=== PATIENT | male | born 1995 | race Caucasian/White ===

== ENCOUNTER 2017-03-19 23:58 | Emergency (ER) | payer OTHER ==
[~2017-03-19] VITALS: Ht 188 cm; Wt 77.1 kg
[~2017-03-19 23:58] MED LIST: CYAN1TAB68 PO; DICL-195 PO; FOLI-68 PO; IBUP800T37 PO; LOR5/325 PO; NO RTN MEDS; RIVA15TA PO; VALA100059; WARF3TAB35 PO
--- NOTE | 2017-03-20 00:01 | ER Report ---
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 He has several mutations noted by hematology. There are extensive hematology notes to review. Patient was out celebrating [place] having several alcoholic drinks. During his 1st drink. He began to have some dull chest pain in his chest with some mild shortness of breath. No diaphoresis or nausea. The pain resolved spontaneously after 10 minutes. He had a 2nd drink and then shortly thereafter had a 2nd episode of chest pain. He notes no radiation to his back, neck or arms. He notes no associated symptoms. He states he's been compliant on his Xarelto. He was advised by his erosion control specialist to go to the ER for any chest pains. Patient denies leg swelling or leg pain. REVIEW OF SYSTEMS: Respiratory: No cough, no dyspnea. Cardiovascular: No chest pain, no palpitations. Gastrointestinal: No vomiting, no abdominal pain. Musculoskeletal: No back pain. Allergies: Coded Allergies: No Known Allergies (Verified Allergy, Mild, 03/20/17) Home Meds Active Scripts Rivaroxaban 15 Mg (XARELTO 15 MG) 15 Mg Tablet, 15 MG PO BID, #41 TAB Prov:TREVOR RAMOS 09/21/15 Reviewed Nurses Notes: Yes Old Medical Records Reviewed: Yes Hx Smoking: No Smoking Status: Never Smoker Exposure to Second Hand Smoke?: Yes Hx Substance Use Disorder: No Hx Alcohol Use: No Constitutional Vital Sign - Last 24 Hours 03/20/17 03/20/17 00:04 01:12 Temp 98.2 Pulse 73 68 Resp 16 12 B/P (MAP) 148/95 127/83 (98) Pulse Ox 93 96 O2 Delivery Room Air Physical Exam General Appearance: The patient is alert, has no immediate need for airway protection and no current signs of toxicity. No acute distress, vital signs stable, afebrile HEENT: Pupils equal and round no injection. Oropharynx without redness or exudate, mucous. Membranes are moist Respiratory: Chest is non tender, lungs are clear to auscultation. No chest wall tenderness Cardiac: regular rate and rhythm, no murmur Gastrointestinal: Abdomen is soft and non tender, no masses, bowel sounds normal. Musculoskeletal: Neck: Neck is supple and non tender. Extremities have full range of motion and are non tender. No edema, no calf tenderness Skin: No rashes or lesions. DIFFERENTIAL DIAGNOSIS: After history and physical exam differential diagnosis was considered for chest pain including but not limited to myocardial ischemia, pericarditis pulmonary embolus, chest wall pain, pleural inflammation, GERD and pulmonary infectious causes. Medical Decision Making Data Points Result Diagram: 03/20/17 0019 03/20/17 0019 Laboratory Hematology Test 03/20/17 00:19 Red Blood Count 5.50 M/uL (4.00-5.60) Mean Corpuscular Volume 84.6 fL (80.0-96.0) Mean Corpuscular Hemoglobin 29.7 pg (26.0-33.0) Mean Corpuscular Hemoglobin Concent 35.2 g/dL (32.0-36.0) Red Cell Distribution Width 13.2 % (11.5-14.5) Mean Platelet Volume 8.3 fL (7.2-11.1) Neutrophils (%) (Auto) 56.0 % (39.4-72.5) Lymphocytes (%) (Auto) 31.1 % (17.6-49.6) Monocytes (%) (Auto) 10.1 % (4.1-12.4) Eosinophils (%) (Auto) 1.9 % (0.4-6.7) Basophils (%) (Auto) 0.9 % (0.3-1.4) Nucleated RBC Relative Count (auto) 0.1 /100WBC Neutrophils # (Auto) 4.2 K/uL (2.0-7.4) Lymphocytes # (Auto) 2.3 K/uL (1.3-3.6) Monocytes # (Auto) 0.8 K/uL (0.3-1.0) Eosinophils # (Auto) 0.1 K/uL (0.0-0.5) Basophils # (Auto) 0.1 K/uL (0.0-0.1) Nucleated RBC Absolute Count (auto) 0.00 K/uL D-Dimer Quantitative (PE/DVT) < 0.27 ug/ml (0-0.50) Sodium Level 138 mmol/L (137-145) Potassium Level 3.5 mmol/L (3.5-5.0) Chloride Level 103 mmol/L (98-107) Carbon Dioxide Level 19 mmol/L (22-30) Blood Urea Nitrogen 14 mg/dl (9-21) Creatinine 0.90 mg/dl (0.66-1.25) Glomerular Filtration Rate Calc > 60.0 Random Glucose 84 mg/dl (75-110) Calcium Level 9.6 mg/dl (8.4-10.2) Total Bilirubin 0.9 mg/dl (0.2-1.3) Aspartate Amino Transf (AST/SGOT) 20 U/L (0-35) Alanine Aminotransferase (ALT/SGPT) 37 U/L (0-56) Alkaline Phosphatase 81 U/L (0-126) Troponin I < 0.012 ng/ml Total Protein 7.6 gm/dl (6.3-8.2) Albumin 4.6 g/dl (3.5-5.0) Chemistry Test 03/20/17 00:19 White Blood Count 7.5 k/uL (4.5-11.0) Red Blood Count 5.50 M/uL (4.00-5.60) Hemoglobin 16.4 g/dL (14.0-18.0) Hematocrit 46.5 % (42.0-52.0) Mean Corpuscular Volume 84.6 fL (80.0-96.0) Mean Corpuscular Hemoglobin 29.7 pg (26.0-33.0) Mean Corpuscular Hemoglobin Concent 35.2 g/dL (32.0-36.0) Red Cell Distribution Width 13.2 % (11.5-14.5) Platelet Count 161 K/uL (150-450) Mean Platelet Volume 8.3 fL (7.2-11.1) Neutrophils (%) (Auto) 56.0 % (39.4-72.5) Lymphocytes (%) (Auto) 31.1 % (17.6-49.6) Monocytes (%) (Auto) 10.1 % (4.1-12.4) Eosinophils (%) (Auto) 1.9 % (0.4-6.7) Basophils (%) (Auto) 0.9 % (0.3-1.4) Nucleated RBC Relative Count (auto) 0.1 /100WBC Neutrophils # (Auto) 4.2 K/uL (2.0-7.4) Lymphocytes # (Auto) 2.3 K/uL (1.3-3.6) Monocytes # (Auto) 0.8 K/uL (0.3-1.0) Eosinophils # (Auto) 0.1 K/uL (0.0-0.5) Basophils # (Auto) 0.1 K/uL (0.0-0.1) Nucleated RBC Absolute Count (auto) 0.00 K/uL D-Dimer Quantitative (PE/DVT) < 0.27 ug/ml (0-0.50) Glomerular Filtration Rate Calc > 60.0 Calcium Level 9.6 mg/dl (8.4-10.2) Total Bilirubin 0.9 mg/dl (0.2-1.3) Aspartate Amino Transf (AST/SGOT) 20 U/L (0-35) Alanine Aminotransferase (ALT/SGPT) 37 U/L (0-56) Alkaline Phosphatase 81 U/L (0-126) Troponin I < 0.012 ng/ml Total Protein 7.6 gm/dl (6.3-8.2) Albumin 4.6 g/dl (3.5-5.0) Coagulation Test 03/20/17 00:19 D-Dimer Quantitative (PE/DVT) < 0.27 ug/ml EKG/Imaging EKG Interpretation 12 lead EKG: Rhythm: normal sinus rhythm [place]: normal QRS: normal ST segments: Nonspecific diffuse ST and T-wave changes on comparison to previous EKG dated 09/29/14, no significant morphologic change ED Course/Re-evaluation ED Course Patient was minute to an examination room. H&P was done. The differential diagnoses was considered. On clinical examination. Patient is stable vital signs are normal pulse ox. He is some mild chest wall tenderness. His diagnostic laboratory studies are unremarkable for elevated d-dimer. His EKG is unremarkable. Patient's offered pain medication for pain relief. His pain is resolved spontaneously does not wish anything to take it home. He is unable take NSAIDs since he is on Xarelto. Patient advised to follow-up with primary care if chest pains persist beyond 3-5 days. Decision to Disposition Date: Mar 20, 2017 Decision to Disposition Time: 01:04 Depart Departure Latest Vital Signs Vital Signs Date Time Temp Pulse Resp B/P (MAP) Pulse Ox O2 Delivery O2 Flow Rate FiO2 03/20/17 01:12 68 12 127/83 (98) 96 03/20/17 00:04 98.2 Room Air Impression: Primary Impression: Chest pain of uncertain etiology Additional Impression: History of recurrent deep vein thrombosis (DVT) Condition: Improved Disposition: HOME OR SELF-CARE Referrals: BRENNA CALLAHAN MD (PCP) Patient Instructions: Chest Pain (ED) Additional Instructions: Follow-up with your primary care in 3-5 days if symptoms persist Problem Qualifiers VICTORINA HOYT DO Mar 20, 2017 00:01
--- NOTE | 2017-03-20 00:20 | EKG ---
FACILITY: [facility] PATIENT NAME: JADA ELLISON : [id number] MR: [id number] V: [id number] EXAM DATE: ORDERING PHYSICIAN: VICTORINA HOYT TECHNOLOGIST: KRISTYN Test Reason : CHEST PAIN Blood Pressure : / mmHG Vent. Rate : 073 BPM Atrial Rate : 073 BPM P-R Int : 158 ms QRS Dur : 112 ms QT Int : 398 ms P-R-T Axes : 065 070 049 degrees QTc Int : 438 ms Normal sinus rhythm Nonspecific T wave abnormality Abnormal ECG When compared with ECG of 29-SEP-2014 21:16, No significant change was found Confirmed by BAYRON MAYES ([id number]) on 03/20/2017 12:35:06 AM Referred By: Confirmed By:BAYRON MAYES
[2017-03-20 00:29] LABS: PLATELET COUNT, AUTOMATED 161 K/uL (150-450)
[2017-03-20 01:12] VITALS: BP 127/83
== END 2017-03-20 01:24 | disposition home or self-care (01) ==
LOC: ER 23:59
DX: R07.89 Other chest pain (principal); Z86.718 Personal history of other venous thrombosis and embolism; Z79.01 Long term (current) use of anticoagulants; R94.31 Abnormal electrocardiogram [ECG] [EKG]
CPT/HCPCS: 82040; 82247; 82310; 82374; 82435; 82565; 82947; 84075; 84132; 84155; 84295; 84450; 84460; 84484; 84520; 85025; 85379; 93005; 99284

== ENCOUNTER 2017-03-31 14:50 | Outpatient (RCR) | payer OTHER ==
[2017-03-23 16:17] VITALS: BP 136/95
[~2017-03-31] VITALS: Ht 188 cm; Wt 81.6 kg
[~2017-03-31 14:50] MED LIST changes: +RIVA20TA PO
[2017-03-31 14:58] VITALS: BP 145/75
[2017-03-31] MEDS ORDERED: folic acid PO (15:06)
[2017-03-31] MEDS ORDERED: FOLI-68 PO (15:43)
[2017-03-31] MEDS ORDERED: VITA1CAP46 PO (15:44)
--- NOTE | 2017-03-31 18:21 | ONCOLOGY FOLLOW UP NOTE ---
EVENT DATE: March 31, 2017 DIAGNOSES 1. 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 2. 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 3. Recurrent deep vein thrombosis of the right lower extremity, September 2015. CHIEF COMPLAINT Patient is here today for followup of his recurrent idiopathic DVT with IVC involvement and homozygous state for methylenetetrahydrofolate reductase mutation. HEMATOLOGY HISTORY Marcial Lopez is an 20-year-old male who was diagnosed at the age of [age] in January 2013 with idiopathic bilateral DVT with involvement and extension of the clot from the mid IVC level bilaterally to the level of the peroneal veins. The renal veins were not visualized due to bowel gas, but the renal veins after that were found intact as well as IVC at that level. The rest of the IVC was difficult to visualize. The patient received six months of anticoagulation initiated with Lovenox and maintained on Coumadin after that. He had a thrombophilia workup which showed normal free protein S. Beta-2 glycoprotein 1 antibodies were normal as well as anticardiolipin antibody, but lupus anticoagulant testing was positive. Lipoprotein S was high. The patient is complaining that while he is exercising, he got pain and fatigue in his calf muscles, and he is concerned about that. Thrombophilia workup came back positive for homozygous state for methylenetetrahydrofolate reductase [id number] mutation. Parameters for antiphospholipid antibody syndrome came back negative , including lupus anticoagulant. Repeat abdominal ultrasound showed canalization and collateral circulation around the thrombus in the IVC. The patient had soreness in his right leg recently on September 20, and the patient went to the emergency room at [facility] in [place]. Repeat ultrasound of the right lower extremity showed persistent, nonocclusive chronic DVT extending from the right common femoral vein through the popliteal vein with additional chronic appearing thrombus in the peroneal vein in the calf. There was thrombus along the mid and upper greater saphenous vein, which is new , but the age of this thrombus not determined. It could be nonacute. The patient started Xarelto 15 mg twice daily since then, which will be switched to 20 mg after three weeks. HISTORY OF PRESENT ILLNESS Patient is here today for follow-up his recurrent idiopathic DVT of the lower extremities and heterozygous state for methylenetetrahydrofolate reductase mutation. He is doing fine currently and he is totally asymptomatic. He has been in the hospital during the beginning of the year for chest pain, and the patient was evaluated and his evaluation was normal at that time. PAST MEDICAL HISTORY 1. Bilateral DVT of the lower extremities with involvement of the IVC. 2. Recurrent DVT of the right lower extremity, September 2015. PAST SURGICAL HISTORY Negative except for ear tube placement as an infant. SOCIAL HISTORY The patient is single. He does not have children. He is a student. Denies any abuse of tobacco, alcohol or drugs. FAMILY HISTORY Negative for cancer or blood diseases. No history of blood clotting in the family. CURRENT MEDICATIONS 1. Folic acid 1 mg daily. 2. Vitamin B complex twice daily. 3. Xarelto 20 mg daily. ALLERGIES No known drug allergies. REVIEW OF SYSTEMS CONSTITUTIONAL: No appetite or weight change. No fever, chills or sweating. No recent infection. HEENT: Ears: No tinnitus or hearing problem. Nose: No nasal discharge or epistaxis. Throat: No sore throat or mouth ulcers. Eyes: No diplopia or visual changes. RESPIRATORY: No shortness of breath. No cough, expectoration or hemoptysis. CARDIOVASCULAR: He has some swelling of the left lower extremity compared to the right. GASTROINTESTINAL: No nausea or vomiting. No diarrhea or constipation. No change in bowel movements. No heartburn or swallowing difficulties. No abdominal pain. No jaundice. No hematemesis, melena or rectal bleeding. GENITOURINARY: No hematuria or dysuria. MUSCULOSKELETAL: The patient has had some problem with his right lower extremity lately, which is getting better with Xarelto currently. NEUROLOGICAL: No tingling or numbness in the hands or feet. No headaches or convulsions. HEMATOLOGIC/LYMPHATIC: No bleeding or easy bruising. No weakness or fatigue. No enlarged lymph nodes. SKIN: He has some scabs on the roe of the skin of the left leg. PSYCHIATRIC: No anxiety or depression. PHYSICAL EXAMINATION GENERAL: Looks stable. Well-developed, well-nourished, and in no acute distress. VITAL SIGNS: Blood pressure 145/75, pulse 68 per minute, respirations 12 per minute, temperature 95, pulse ox 96% on room air. HEENT: Head: Atraumatic. No sinus tenderness to palpation. Eyes: No icterus or conjunctivitis. Mouth and throat: No oral thrush or mucositis. NECK: Supple. No cervical or supraclavicular lymphadenopathy. LUNGS: Clear to auscultation and percussion bilaterally. HEART: Regular rate and rhythm. No gallops, murmurs, clicks or rubs. ABDOMEN: Soft and lax. No tenderness. No hepatosplenomegaly. No masses. EXTREMITIES: No cyanosis, clubbing or edema. LYMPHATICS: No peripheral lymphadenopathy. NEUROLOGICAL: Conscious, alert and oriented times three. No focal motor or sensory deficits. PSYCHIATRIC: Mood and affect appear normal. SKIN: There are some scabs over the skin of the front of the left leg. DIAGNOSTIC DATA Fasting homocysteine level is 11. ASSESSMENT 1. Idiopathic bilateral deep venous thromboses with inferior vena cava involvement, initially diagnosed in January of 2013. Patient treated with six months of anticoagulation with Coumadin initiated after Lovenox. Thrombophilia workup came back positive at that time for lupus anticoagulant, but his repeat testing came back negative and his anticoagulation was discontinued after six months. His thrombophilia was negative for antiphospholipid antibody syndrome including lupus anticoagulant. Protein C and protein S activities were normal. He had positive homozygous state from methylenetetrahydrofolate reductase [id number] mutation. He developed another idiopathic DVT of the right lower extremity and for this reason the patient is considered a candidate for lifelong anticoagulation. He is currently maintained on Xarelto 20 mg daily, and he is doing. I am planning to see him again in six months from now with fasting homocysteine level, and we will continue Xarelto 20 mg lifelong. 2. Homozygous state for methylenetetrahydrofolate reductase [id number] mutation. His current homocysteine level is mildly elevated at 11. I will continue folic acid and vitamin B complex supplement. I will repeat the testing for homocysteine in six months with his next visit. PLAN 1. Xarelto 20 mg daily. 2. Folic acid 1 mg daily. 3. Vitamin B complex one tablet twice daily. 4. Patient is to return in six months with fasting homocysteine level. 5. Patient is to contact us for any new concern or complaints. ZAKI
== END 2017-04-03 07:42 | disposition home or self-care (01) ==
LOC: ONC 14:50
PROVIDERS: ATTEND Internal Medicine Hematology
DX: Z86.718 Personal history of other venous thrombosis and embolism (principal); E72.12 Methylenetetrahydrofolate reductase deficiency; Z79.01 Long term (current) use of anticoagulants
CPT/HCPCS: 36415; 83090; 99212

== ENCOUNTER 2017-09-20 22:54 | Emergency (ER) | payer OTHER ==
[~2017-09-20 22:54] MED LIST changes: +VITA1CAP46 PO; +folic acid PO
--- NOTE | 2017-09-20 22:56 | ER Report ---
History and Physical Time Seen By MD: 22:55 HPI/ROS CHIEF COMPLAINT: Skin lesions, left leg HISTORY OF PRESENT ILLNESS: 22-year-old male with a long history of coagulopathy and previous DVTs. On lifelong and coagulation followed by hematology. Notes 2 skin lesions which have been present on his lower extremities for 5 years. He points to 2 scabbed lesions on his left lower extremity. There is been no fever, no drainage, no itching and no pain from these areas. REVIEW OF SYSTEMS: Respiratory: No cough, no dyspnea. Cardiovascular: No chest pain, no palpitations. Gastrointestinal: No vomiting, no abdominal pain. Musculoskeletal: No back pain. Allergies: Coded Allergies: No Known Allergies (Verified Allergy, Mild, 09/20/17) Home Meds Active Scripts Triamcinolone Acetonide 0.025% (TRIAMCINOLONE ACETONIDE 0.025%) 80 Gm Oint...g. , 80 GM TP BID for stasis dermatitis, #80 TUB Apply a thin layer to the affected area twice daily for several weeks Prov:VICTORINA HOYT DO 09/20/17 Rivaroxaban 20 Mg (XARELTO 20 MG) 20 Mg Tablet, 20 MG PO DAILY for 90 Days, #90 TAB 3 Refills Prov:BERTRAND NAVARRO LITIGATION CLAIM REPRESENTATIVE-BC, ONC 03/27/17 Reported Medications Vitamin B Complex (VITAMIN B COMPLEX) 1 Each Capsule, 1 EACH PO DAILY, CAPSULE 03/31/17 Folic Acid (FOLIC ACID) 1 Mg Tablet, 1 MG PO QDAY, TAB 03/31/17 Past Medical/Surgical History PAST MEDICAL HISTORY 1. Bilateral DVT of the lower extremities with involvement of the IVC. 2. Recurrent DVT of the right lower extremity, September 2015. PAST SURGICAL HISTORY Negative except for ear tube placement as an . SOCIAL HISTORY The patient is single. He does not have children. He is a student. Denies any abuse of tobacco, alcohol or drugs. FAMILY HISTORY Negative for cancer or blood diseases. No history of blood clotting in the family. CURRENT MEDICATIONS 1. Folic acid 1 mg daily. 2. Vitamin B complex twice daily. 3. Xarelto 20 mg daily. ALLERGIES No known drug allergies. Reviewed Nurses Notes: Yes Old Medical Records Reviewed: Yes Hx Smoking: No Smoking Status: Never Smoker Exposure to Second Hand Smoke?: Yes Hx Substance Use Disorder: No Hx Alcohol Use: No Constitutional Vital Sign - Last 24 Hours 09/20/17 09/20/17 22:59 23:18 Temp 97.9 Pulse 64 59 Resp 16 16 B/P (MAP) 129/105 120/93 (102) Pulse Ox 94 95 O2 Delivery Room Air Room Air Physical Exam General appearance: Alert no distress. Respiratory: Chest is non tender, lungs are clear to auscultation. Cardiac: Regular rate and rhythm Extremities: Examination of the left lower extremity shows chronic edema consistent with previous DVT. He has postphlebitic syndrome. There are 2 small areas on the medial aspect of the lower leg just above the ankle bones that are approximate 1 cm in diameter consistent with stasis dermatitis. There is a scaly skin lesion without drainage or surrounding erythema. There is no warmth or tenderness. Distal neurovascular functions intact in the left foot DIFFERENTIAL DIAGNOSIS: After history and physical exam differential diagnosis was considered for scab wounds, lichen planus, stasis dermatitis, contact dermatitis Medical Decision Making ED Course/Re-evaluation ED Course Patient was admitted to an examination room. H&P was done. The differential diagnoses was considered. On clinical examination. She has 2 patches on his left lower extremity consistent with stasis dermatitis. Patient advised that they been there 5 years. It may take several months for them to resolve. He's advised to apply triamcinolone ointment which will be prescribed tonight for him. Eyes the follow-up with his primary care in 3-4 weeks if unimproved. Decision to Disposition Date: Sep 20, 2017 Decision to Disposition Time: 23:12 Depart Departure Latest Vital Signs Vital Signs Date Time Temp Pulse Resp B/P (MAP) Pulse Ox O2 Delivery O2 Flow Rate FiO2 09/20/17 23:18 59 16 120/93 (102) 95 Room Air 09/20/17 22:59 97.9 Impression: Primary Impression: Stasis dermatitis of left lower extremity due to peripheral venous hypertension Condition: Improved Disposition: HOME OR SELF-CARE Referrals: BRENNA CALLAHAN MD (PCP) New Scripts Triamcinolone Acetonide 0.025% (TRIAMCINOLONE ACETONIDE 0.025%) 80 Gm Oint...g. 80 GM TP BID for stasis dermatitis, #80 TUB Apply a thin layer to the affected area twice daily for several weeks Prov: VICTORINA HOYT DO 09/20/17 Patient Instructions: Stasis Dermatitis (ED) Additional Instructions: Follow-up with your primary care physician if unimproved in 2-3 weeks VICTORINA HOYT DO Sep 20, 2017 22:55
[2017-09-20] MEDS ORDERED: TRIA80OI13 TP (23:14)
[2017-09-20 23:18] VITALS: BP 120/93
== END 2017-09-20 23:18 | disposition home or self-care (01) ==
LOC: ER 22:58
DX: I87.2 Venous insufficiency (chronic) (peripheral) (principal); I87.009 Postthrombotic syndrome without complications of unspecified extremity; Z79.01 Long term (current) use of anticoagulants; Z86.718 Personal history of other venous thrombosis and embolism
CPT/HCPCS: 99281

== ENCOUNTER 2018-09-03 08:34 | Outpatient (RCR) | payer OTHER ==
[~2018-09-03 08:34] MED LIST changes: +TRIA80OI13 TP
[2018-09-03 08:52] VITALS: BP 124/87
[2018-09-03] MEDS ORDERED: RIVA20TA PO (09:36)
[2018-09-03] MEDS ORDERED: TRIA80OI13 TP (09:36)
[2018-09-03] MEDS ORDERED: VITA1CAP46 PO (09:37)
[2018-09-03] MEDS ORDERED: FOLI-68 PO (09:37)
[2018-09-03 09:38] LABS: PLATELET COUNT, AUTOMATED 158 K/uL (150-450)
--- NOTE | 2018-09-04 04:11 | ONCOLOGY FOLLOW UP NOTE ---
EVENT DATE: September 03, 2018 CHIEF COMPLAINT/REASON FOR VISIT Mr. Lopez is a pleasant 23-year-old gentleman with homozygous mutations for MTHFR [id number] mutation, who has had recurrent DVTs. HISTORY OF PRESENT ILLNESS Marcial's clotting history begins at the age of 17, in January 2013, when he had extensive idiopathic bilateral DVT with extension into the mid IVC. He was treated with six months of anticoagulation with Lovenox and Coumadin. Thrombophilia workup at that time was positive for a lupus anticoagulant test, and subsequent testing has been negative. Unfortunately, he did then have recurrence in the right lower extremity in September 2015. He was off blood thinners at that time, as he was only treated appropriately for six months initially, but has now been on indefinite anticoagulation since then, due to the recurrent thromboses and thrombophilia. The patient does have a rash and some lesions on his left leg that have been responsive to steroids. He was told that they were related to his history of thromboses. They are healing and scarred. If they worsen or recur, I may have him see Dermatology. He continues on Xarelto 20 mg daily. PAST MEDICAL HISTORY 1. Bilateral DVT of the lower extremities with involvement of the IVC. 2. Recurrent DVT of the right lower extremity, September 2015. PAST SURGICAL HISTORY Negative except for ear tube placement as an infant. SOCIAL HISTORY The patient is single. He does not have children. He is a student. Denies any abuse of tobacco, alcohol or drugs. FAMILY HISTORY Negative for cancer or blood diseases. No history of blood clotting in the family. CURRENT MEDICATIONS 1. Folic acid 1 mg daily. 2. Vitamin B complex twice daily. 3. Xarelto 20 mg daily. ALLERGIES No known drug allergies. REVIEW OF SYSTEMS CONSTITUTIONAL: No fevers or chills. HEENT: No headache, vision changes. CARDIOVASCULAR: No chest pain, dyspnea on exertion, edema. RESPIRATORY: No shortness of breath, wheeze, cough. GASTROINTESTINAL: No nausea, vomiting. GENITOURINARY: No dysuria, hematuria. MUSCULOSKELETAL: No muscle pain, joint pain. NEUROLOGIC: No deficits, headache. HEMATOLOGIC: No bruising, bleeding issues. SKIN: The patient does have some scarred rash on the left lower extremity near the ankle. None on the right. Remainder of 14-point review of systems otherwise negative. PHYSICAL EXAMINATION VITAL SIGNS: Blood pressure 124/87, pulse 63, respiratory rate 16, temperature 98.2 Fahrenheit, oxygen saturation 98% on room air. Weight 76.3 kg, pain 0/10, fatigue 0/10. GENERAL: Stable condition, resting comfortably in the chair. HEENT: Normocephalic, atraumatic. SKIN: The patient has three or four scars on his left lower leg near the ankle. He states that these are much improved after triamcinolone cream. He is continuing to apply that as needed. I do think it would be reasonable for him to see Dermatology, as I do not know the exact etiology of this rash. Remainder of full physical exam deferred today to amount of time spent in counseling and coordination of care. No significant edema. IMPRESSION/REPORT/PLAN Mr. Lopez is a very pleasant 23-year-old gentleman with the following: * Idiopathic bilateral deep venous thrombosis with inferior vena cava involvement in January 2013. Recurrent deep venous thrombosis in the right lower extremity in 2016. Positive for thrombophilia with homozygosity for MTHFR mutation [id number]. Recommend indefinite anticoagulation with Xarelto 20 mg daily. He has had no issues with bleeding, thankfully. We will repeat labs today. He has had a high homocysteine in the past. Answered all of their questions today. We discussed the natural history, diagnosis and treatment options for thrombophilia. I am concerned about the extensiveness of his first blood clot at such an extremely young age, and it being unprovoked. I agree with Dr. Rodrigues's assessment and recommend indefinite anticoagulation. Would like to see him every one to two years. Answered all of his questions today. BILLING Return visit level 5. Total time 40 minutes, counseling time 30. MTDD
== END 2018-09-17 13:22 | disposition home or self-care (01) ==
LOC: ONC 08:34
PROVIDERS: ATTEND Internal Medicine
DX: Z86.718 Personal history of other venous thrombosis and embolism (principal); Z79.01 Long term (current) use of anticoagulants; E72.12 Methylenetetrahydrofolate reductase deficiency
CPT/HCPCS: 36415; 82040; 82247; 82310; 82374; 82435; 82565; 82607; 82746; 82947; 83090; 84075; 84132; 84155; 84295; 84450; 84460; 84520; 85025; 99212

== ENCOUNTER 2018-10-26 16:46 | Emergency (ER) | payer OTHER ==
[2018-10-26 17:10] LABS: PLATELET COUNT, AUTOMATED 175 K/uL (150-450)
--- NOTE | 2018-10-26 17:32 | ER Report ---
History and Physical Time Seen By MD: 16:59 (ERLINDA TAMAYO DO) HPI/ROS CHIEF COMPLAINT: r leg pain HISTORY OF PRESENT ILLNESS: Pt was playing soft ball and slide into base on his right leg. Pt has hematoma r lateral calf below the knee and pain in calf. PT is on xeralto. 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 Pt has been ambulatory but with pain in the calf. Pt has hematoma and bruising evident. No ankle pain. no knee pain.+ soft tissue pain. PT did not hit her head. REVIEW OF SYSTEMS: Constitutional: No fever, no chills. Eyes: No discharge. ENT: No sore throat. Cardiovascular: No chest pain, no palpitations. Respiratory: No cough, no shortness of breath. Gastrointestinal: No abdominal pain, no vomiting. Genitourinary: No hematuria. Musculoskeletal: No back pain. + right leg pain Skin: + hematoma, + ecchymosis. Neurological: No headache. (ERLINDA TAMAYO DO) Allergies: Coded Allergies: No Known Allergies (Verified Allergy, Mild, 10/26/18) Home Meds Active Scripts Vitamin B Complex (VITAMIN B COMPLEX) 1 Each Capsule, 1 EACH PO DAILY, #90 CAPSULE 3 Refills Prov:JEET DE LOS SANTOS MD 09/03/18 Folic Acid (FOLIC ACID) 1 Mg Tablet, 1 MG PO QDAY, #90 TAB 3 Refills Prov:JEET DE LOS SANTOS MD 09/03/18 Triamcinolone Acetonide 0.025% (TRIAMCINOLONE ACETONIDE 0.025%) 80 Gm Oint...g., 80 GM TP BID for stasis dermatitis, #80 TUB Apply a thin layer to the affected area twice daily for several weeks Prov:JEET DE LOS SANTOS MD 09/03/18 Rivaroxaban 20 Mg (XARELTO 20 MG) 20 Mg Tablet, 20 MG PO DAILY for 90 Days, #90 TAB 3 Refills Prov:JEET DE LOS SANTOS MD 09/03/18 Past Medical/Surgical History Pmhx: clotting disorder, dvts (ERLINDA TAMAYO DO) Reviewed Nurses Notes: Yes Old Medical Records Reviewed: Yes (ERLINDA TAMAYO DO) Hx Smoking: No Smoking Status: Never Smoker Exposure to Second Hand Smoke?: Yes Hx Substance Use Disorder: No Hx Alcohol Use: No (LAURORA,ERLINDA V DO) Constitutional Vital Sign - Last 24 Hours 10/26/18 10/26/18 10/26/18 10/26/18 16:51 17:00 17:30 18:00 Temp 99.3 Pulse 83 66 78 54 Resp 20 18 B/P (MAP) 137/98 122/81 (95) 124/73 (90) 125/74 (91) Pulse Ox 93 92 93 94 O2 Delivery Room Air (VICTORINA CHE DO) Physical Exam General Appearance: The patient is alert, has no immediate need for airway protection and no signs of toxicity. Eyes: Pupils equal and round no pallor or injection, EOMI ENT: no pharyngeal erythema or exudates, Mucous membranes are moist Respiratory: There are no retractions, lungs are clear to auscultation. Cardiovascular: Regular rate and rhythm. pulses are equal and symmetrical Gastrointestinal: Abdomen is soft and non tender, no masses, bowel sounds normal, no guarding, no rigidity or rebound Neurological: Cranial nerves II-XII grossly intact, no sensory or motor loss Skin: Warm and dry, + ecchymosis and palpable hematoma right lateral calf Musculoskeletal: Neck is supple non tender, no vertebral tenderness Extremities are nontender, have full range of motion, bruising to r calf as noted on skin exam; no laxity with thiago, draw testing, valgus or varus of knees b/l; ankle has no laxity or swelling. Achilles intact DIFFERENTIAL DIAGNOSIS: After history and physical exam differential diagnosis was considered for hematoma, fracture, dvt (RONI,ERLINDA V DO) Medical Decision Making Data Points Result Diagram: 10/26/18 1652 Laboratory Hematology Test 10/26/18 16:52 White Blood Count 8.5 k/uL (4.5-11.0) Red Blood Count 4.80 M/uL (4.00-5.60) Hemoglobin 14.8 g/dL (14.0-18.0) Hematocrit 41.8 % (42.0-52.0) L Mean Corpuscular Volume 87.2 fL (80.0-96.0) Mean Corpuscular Hemoglobin 30.9 pg (26.0-33.0) Mean Corpuscular Hemoglobin Concent 35.4 g/dL (32.0-36.0) Red Cell Distribution Width 13.2 % (11.5-14.5) Platelet Count 175 K/uL (150-450) Mean Platelet Volume 8.3 fL (7.2-11.1) Neutrophils (%) (Auto) 71.0 % (39.4-72.5) Lymphocytes (%) (Auto) 20.5 % (17.6-49.6) Monocytes (%) (Auto) 7.5 % (4.1-12.4) Eosinophils (%) (Auto) 0.5 % (0.4-6.7) Basophils (%) (Auto) 0.5 % (0.3-1.4) Nucleated RBC Relative Count (auto) 0.0 /100WBC Neutrophils # (Auto) 6.0 K/uL (2.0-7.4) Lymphocytes # (Auto) 1.7 K/uL (1.3-3.6) Monocytes # (Auto) 0.6 K/uL (0.3-1.0) Eosinophils # (Auto) 0.0 K/uL (0.0-0.5) Basophils # (Auto) 0.0 K/uL (0.0-0.1) Nucleated RBC Absolute Count (auto) 0.00 K/uL (VICTORINA CHE DO) EKG/Imaging Imaging Results: Ultrasound of the right lower study ultrasound was obtained. The results of the study are EXAMINATION: US VENOUS LOWER EXT RT COMPARISON: Ultrasound report 09/21/2015. HISTORY: hx of dvt; pain FINDINGS: Standard right lower extremity Doppler ultrasound with color flow and spectral analysis is performed. The common femoral vein is unremarkable. The mid femoral vein is duplicated. In one of the vessels there is a small amount of echogenic nonocclusive eccentric thrombus suggestive of chronic thrombus. Although the images are not available for direct review, the ultrasound report from 09/21/2015 described chronic thrombus in the same distribution. No acute thrombus is identified. The popliteal vein and visualized calf vessels are patent. At the site of swelling along the proximal and lateral right calf is a 3.4 x 0.7 x 3.8 cm hypoechoic nonvascular fluid collection in the deep simultaneous soft tissues. The left common femoral vein is patent. IMPRESSION: 1. No right lower extremity acute deep venous thrombus. 2. 3.4 x 0.7 x 3.8 cm complex fluid collection at the site of bruising along the right calf is most suggestive of a hematoma. Unless there is a clinical concern for infection an infected collection is considered unlikely. The study was read by the radiologist. I viewed the images myself on the PACS system. (VICTORINA CHE DO) ED Course/Re-evaluation ED Course US and check hb 10/26/2018 5:29:44 pm Pt ambulatory. Discussed a xray however pt doses not fe el necessary. Pt does not have a palpable deformity. I feel that is reasonable. 10/26/2018 5:59:49 pm Signed out to Dr. Che pending US. Decision to Disposition Date: Oct 26, 2018 (ERLINDA TAMAYO DO) ED Course Care was assumed at shift change from Dr. Duran with diagnostic ultrasound of the right lower extremity pending. She with extensive history of previous clots. He is on Xarelto. Chronically. The ultrasound was unremarkable for new clot. He does have a hematoma noted on ultrasound. Patient was advised to conservative treatment plan of compression wraps, Tylenol for pain. Ice for 2-3 days, then heating pad application for reabsorption of the residual blood. Decision to Disposition Date: Oct 26, 2018 Decision to Disposition Time: 18:26 (VICTORINA CHE DO) Depart Departure Latest Vital Signs Vital Signs Date Time Temp Pulse Resp B/P (MAP) Pulse Ox O2 Delivery O2 Flow Rate FiO2 10/26/18 18:00 54 125/74 (91) 94 10/26/18 17:00 18 10/26/18 16:51 99.3 Room Air (VICTORINA CHE DO) Impression: Primary Impression: Traumatic hematoma of right lower leg Condition: Improved Disposition: HOME OR SELF-CARE Referrals: BRENNA CALLAHAN MD (PCP) Patient Instructions: Hematoma (ED) Additional Instructions: Wear compressive wrap her Robson wrap to the affected area Apply ice packs for 2-3 days to reduce swelling then switch to a heating pad to help resorb the blood Follow-up with your primary care doctor if unimproved in 3-5 days Return to the ER for any worsening or shortness of breath or chest pain Problem Qualifiers Primary Impression: Traumatic hematoma of right lower leg Encounter type: initial encounter Qualified Codes: S80.11XA - Contusion of right lower leg, initial encounter ERLINDA TAMAYO DO Oct 26, 2018 17:32 VICTORINA CHE DO Oct 26, 2018 18:30
[2018-10-26 18:00] VITALS: BP 125/74
--- NOTE | 2018-10-26 18:53 | RADIOLOGY IMAGING REPORT ---
[place] [facility] [place] NAME: Marcial Lopez : 1995 MR: [id number] V: [id number] EXAM DATE: ORDERING PHYSICIAN: ERLINDA TAMAYO TECHNOLOGIST: Location: [facility] [place] Patient: Marcial Lopez : 1995 Visit/Account:[id number] Date of Sevice: 10/26/2018 EXAMINATION: US VENOUS LOWER EXT RT COMPARISON: Ultrasound report 09/21/2015. HISTORY: hx of dvt; pain FINDINGS: Standard right lower extremity Doppler ultrasound with color flow and spectral analysis is performed. The common femoral vein is unremarkable. The mid femoral vein is duplicated. In one of the vessels th ere is a small amount of echogenic nonocclusive eccentric thrombus suggestive of chronic thrombus. Al though the images are not available for direct review, the ultrasound report from 09/21/2015 described chronic thrombus in the same distribution. No acute thrombus is identified. The popliteal vein and vi sualized calf vessels are patent. At the site of swelling along the proximal and lateral right calf is a 3.4 x 0.7 x 3.8 cm hypoechoic nonvascular fluid collection in the deep simultaneous soft tissues. The left common femoral vein is patent. IMPRESSION: 1. No right lower extremity acute deep venous thrombus. 2. 3.4 x 0.7 x 3.8 cm complex fluid collection at the site of bruising along the right calf is most s uggestive of a hematoma. Unless there is a clinical concern for infection an infected collection is c onsidered unlikely. Report Dictated By: Johnson Reich MD at 10/26/2018 6:41 PM Report E-Signed By: Johnson Reich MD at 10/26/2018 6:45 PM WSN:[id number]
== END 2018-10-26 18:36 | disposition home or self-care (01) ==
LOC: ER 16:54
DX: S80.11XA Contusion of right lower leg, initial encounter (principal); Z86.718 Personal history of other venous thrombosis and embolism; Z79.01 Long term (current) use of anticoagulants
CPT/HCPCS: 85025; 99284